=== PATIENT | male | born 1945 | race Caucasian/White ===

== ENCOUNTER 2022-12-02 10:26 | Emergency (ER) | payer OTHER ==
[~2022-12-02] VITALS: Ht 172.7 cm; Wt 90.7 kg
[2022-12-02] MEDS ORDERED: Prozac40 MG PO (10:38)
[2022-12-02] MEDS ORDERED: FURO40 PO (10:38)
[2022-12-02] MEDS ORDERED: ALLO100 PO (10:38)
[2022-12-02] MEDS ORDERED: AMLO10 PO (10:38)
[2022-12-02] MEDS ORDERED: OLME20 PO (10:39)
[2022-12-02] MEDS ORDERED: CATAPRES0.1 MG PO (10:40)
[2022-12-02] MEDS ORDERED: ASPI81CH PO (10:40)
[2022-12-02] MEDS ORDERED: TRAZ50 PO (10:41)
[2022-12-02 11:36] LABS: BASOPHILS ABSOLUTE AUTO 0.02 K/mm3 (0.00-0.23); BASOPHILS PERCENT AUTO 0 % (0-2); EOSINOPHILS ABSOLUTE AUTO 0.12 K/mm3 (0.00-0.68); EOSINOPHILS PERCENT AUTO 2 % (0-6); Hematocrit 38.9 % (37.0-53.0); IMMATURE GRAN ABSOLUTE AUTO 0.01 K/mm3 (0.00-0.10); IMMATURE GRAN PERCENT AUTO 0 % (0-1); LYMPHOCYTES ABSOLUTE AUTO 1.37 K/mm3 (0.84-5.20); LYMPHOCYTES PERCENT AUTO 21 % (21-46); MONOCYTES ABSOLUTE AUTO 0.41 K/mm3 (0.16-1.47); MONOCYTES PERCENT AUTO 6 % (4-13); Mean Corpuscular HGB 32.9 pg (26.0-34.0); Mean Corpuscular Volume 91 fL (80-100); Mean Platelet Volume 10.2 fL (9.1-12.4); NEUTROPHILS ABSOLUTE AUTO 4.59 K/mm3 (1.96-9.15); NEUTROPHILS PERCENT AUTO 70 % (41-73); Platelet Count 232 K/mm3 (150-400); RDW Coefficient Variation 11.5 % (11.7-14.2); RDW Standard Deviation 38.8 fL (35.1-46.3); Red Blood Cell Count 4.26 M/mm3 (4.30-5.90); White Blood Cell Count 6.52 K/mm3 (4.00-11.30)
[2022-12-02 11:44] LABS: Albumin, Blood 3.7 g/dL (3.4-5.0); Albumin/Globulin Ratio 0.9 (0.8-1.8); Bilirubin, Total 0.6 mg/dL (0.1-1.0); Bun/Creatinine Ratio 12.1 (12.0-20.0); Calcium, Blood 8.9 mg/dL (8.5-10.1); Creatinine, Blood 0.99 mg/dL (0.60-1.20); Magnesium, Blood 2.6 mg/dL (1.6-2.4); Potassium, Blood 3.2 mmol/L (3.5-5.5); Thyroid Stimulating Hormone 1.39 uIU/mL (0.360-4.800); Total Protein, Blood 7.7 g/dL (6.4-8.2)
[2022-12-02 12:44] VITALS: BP 165/70
== END 2022-12-02 12:50 | disposition home or self-care (01) ==
LOC: ER 10:26
PROVIDERS: Emergency Medicine
DX: R00.2 Palpitations (principal); E87.6 Hypokalemia; I10 Essential (primary) hypertension; M10.9 Gout, unspecified
CPT/HCPCS: 71046; 80053; 83735; 84443; 84484; 85025; 93005; 93010; 93246; 99285-25; A9270

== ENCOUNTER → 2022-12-02 | Outpatient (CLI) | payer OTHER ==
[~2022-12-02] MED LIST: ALLO100 PO; AMLO10 PO; ASPI81CH PO; CATAPRES0.1 MG PO; FURO40 PO; OLME20 PO; Prozac40 MG PO; TRAZ50 PO
== END | disposition home or self-care (01) ==
LOC: LAB 10:10 → LAB SHORT 10:10
DX: R00.2 Palpitations (principal)
CPT/HCPCS: 84484

== ENCOUNTER → 2024-02-23 | Outpatient (CLI) | payer OTHER ==
[~2024-02-23] MED LIST changes: +CEPH500 PO; +CHLO25B PO
[2024-02-23 12:23] LABS: BASOPHILS ABSOLUTE AUTO 0.02 K/mm3 (0.00-0.23); BASOPHILS PERCENT AUTO 0 % (0-2); EOSINOPHILS ABSOLUTE AUTO 0.03 K/mm3 (0.00-0.68); EOSINOPHILS PERCENT AUTO 0 % (0-6); Hematocrit 40.5 % (37.0-53.0); Hemoglobin 14.4 g/dL (13.5-17.5); IMMATURE GRAN ABSOLUTE AUTO 0.05 K/mm3 (0.00-0.10); IMMATURE GRAN PERCENT AUTO 1 % (0-1); LYMPHOCYTES ABSOLUTE AUTO 1.11 K/mm3 (0.84-5.20); LYMPHOCYTES PERCENT AUTO 11 % (21-46); MONOCYTES ABSOLUTE AUTO 0.52 K/mm3 (0.16-1.47); MONOCYTES PERCENT AUTO 5 % (4-13); Mean Corpuscular HGB 32.3 pg (26.0-34.0); Mean Corpuscular HGB Conc 35.6 g/dL (31.5-36.5); Mean Corpuscular Volume 91 fL (80-100); Mean Platelet Volume 8.9 fL (9.1-12.4); NEUTROPHILS ABSOLUTE AUTO 8.44 K/mm3 (1.96-9.15); NEUTROPHILS PERCENT AUTO 83 % (41-73); Platelet Count 241 K/mm3 (150-400); RDW Coefficient Variation 12.3 % (11.7-14.2); RDW Standard Deviation 40.7 fL (35.1-46.3); Red Blood Cell Count 4.46 M/mm3 (4.30-5.90); White Blood Cell Count 10.17 K/mm3 (4.00-11.30)
[2024-02-23 12:30] LABS: Bun/Creatinine Ratio 8.7 (12.0-20.0); Calcium, Blood 9.3 mg/dL (8.5-10.1); Creatinine, Blood 1.04 mg/dL (0.60-1.20); Potassium, Blood 3.2 mmol/L (3.5-5.5)
== END | disposition home or self-care (01) ==
LOC: LAB 12:19 → LAB SHORT 12:19
PROVIDERS: Chiropractor
DX: R33.9 Retention of urine, unspecified (principal)
CPT/HCPCS: 80048; 85025

== ENCOUNTER → 2024-04-23 | Outpatient (CLI) | payer OTHER | END | disposition home or self-care (01) | LOC: LAB 08:59 → LAB SHORT 08:59 | DX: R33.8 Other retention of urine (principal) | CPT/HCPCS: 87077; 87086; 87186 ==

== ENCOUNTER 2024-08-04 06:32 | Emergency (ER) | payer OTHER ==
[~2024-08-04] VITALS: Ht 172.7 cm; Wt 86.2 kg
[2024-08-04] MEDS ORDERED: Lidocaine 2% Jelly Uro-Jet TOP ONE (06:40)
[2024-08-04 07:39] LABS: Source, Urine Foley catheter
[2024-08-04 07:41] VITALS: BP 140/78
[2024-08-04 07:43] LABS: Appearance, Urine Clear (Clear); Bilirubin, Urine Neg (Neg); Blood, Urine Neg (Neg); Color, Urine Yellow (P-Yellow); Glucose Qualitative, Urine Neg (Neg); Ketones, Urine Neg (Neg); Leukocyte Esterase, Urine Neg (Neg); Nitrite, Urine Neg (Neg); Protein, Urine Neg (Neg); Specific Gravity, Urine 1.005 (1.003-1.022); Urobilinogen, Urine NORM (Normal)
[2024-08-04] MEDS ORDERED: TAMS.4ER PO (07:56)
== END 2024-08-04 09:40 | disposition home or self-care (01) ==
LOC: ER 06:32
PROVIDERS: Emergency Medicine
DX: R33.9 Retention of urine, unspecified (principal); I10 Essential (primary) hypertension; M10.9 Gout, unspecified; Z88.8 Allergy status to other drugs, medicaments and biological substances; Z79.02 Long term (current) use of antithrombotics/antiplatelets; Z79.899 Other long term (current) drug therapy; Z79.2 Long term (current) use of antibiotics
CPT/HCPCS: 51702; 51798; 81003